=== PATIENT | male | born 2000 | race Caucasian/White ===

== ENCOUNTER 2024-12-26 11:20 | Outpatient (CLI) | payer OTHER, BC, SELFPAY ==
--- NOTE | ~2024-12-26 | XR_ITS ---
EXAM: XR hand RT min 3V, XR wrist RT min 3V DATE: 12/26/2024 12:19 HISTORY: R hand pain . COMPARISON: None available. FINDINGS: Normal mineralization. No fracture or dislocation. No lytic or blastic lesion. Joint space s are maintained. No erosion or periosteal change. Soft tissues within normal limits. IMPRESSION: No acute osseous finding in the right wrist or right hand. Reviewed, dictated and finalized at location K. IMPRESSION: No acute osseous finding in the right wrist or right hand.
--- NOTE | ~2024-12-26 | XR_ITS ---
XR elbow RT min 3V 12/26/2024 12:19 INDICATION: Right elbow pain PROCEDURE: 4 views right elbow COMPARISON: No prior studies for comparison. FINDINGS: Fracture, dislocation or subluxation is not identified. The soft tissues appear within norm al limits. No foreign bodies are identified. IMPRESSION: 1: NO ACUTE BONE OR JOINT ABNORMALITY IDENTIFIED. Reviewed, dictated and finalized at location []
== END 2024-12-26 11:21 | disposition home or self-care (01) ==
LOC: MICIMG 11:34
PROVIDERS: PCP Nurse Practitioner Family; Visit Provider Nurse Practitioner Family
DX: M79.641 Pain in right hand (principal); M79.644 Pain in right finger(s); M25.521 Pain in right elbow
CPT/HCPCS: 73080; 73110; 73130